=== PATIENT | female | born 1970 | race Caucasian/White ===

== ENCOUNTER 2019-05-08 07:37 | Day surgery (SDC) | payer MEDICAID ==
[~2019-05-08] VITALS: Ht 160 cm; Wt 70.5 kg
[~2019-05-08 07:37] MED LIST: SODIUM CHLORIDE 0.9% 1,000 ML IV ONE
[2019-05-08] MEDS ORDERED: VITAD50000 PO (09:26)
[2019-05-08] MEDS ORDERED: PROPOFOL 1% 20 ML VIAL IVP ONE (12:00)
[2019-05-08] MEDS ORDERED: LABETALOL HCL 5 MG/ML 20 ML VIAL IVP ONE (12:00)
== END 2019-05-08 09:50 | disposition home or self-care (01) ==
LOC: SURGERY 07:37
PROVIDERS: ATTEND Internal Medicine Gastroenterology
DX: K29.50 Unspecified chronic gastritis without bleeding (principal); K64.8 Other hemorrhoids; J45.909 Unspecified asthma, uncomplicated; E55.9 Vitamin D deficiency, unspecified; Z88.8 Allergy status to other drugs, medicaments and biological substances; Z79.899 Other long term (current) drug therapy; Z98.890 Other specified postprocedural states; Z80.0 Family history of malignant neoplasm of digestive organs
CPT/HCPCS: 44361; 84703; 88304; 88312; 88313; C1769; J2704; J3490; J7030